=== PATIENT | female | born 2000 | race Caucasian/White ===

== ENCOUNTER 2018-06-14 11:21 | Day surgery (SDC) | payer BC ==
[~2018-06-14] VITALS: Ht 147.3 cm; Wt 140.0 kg
[2018-06-14] VITALS (10 sets, daily range): BP systolic 86–114; BP diastolic 44–86; PULSE 75–138; TEMP 97.8–98.8
[2018-06-14 12:02] LABS: HEMOGLOBIN 11.8 g/dl (12.0-15.0); MEAN CELL VOLUME 82 fl (80.0-95.0); MEAN CORPUSCULAR HEMOGLOBIN 27 pg (26.0-32.0); MEAN CORPUSCULAR HGB CONC 33 g/dl (33.0-37.0); MEAN PLATELET VOLUME 9.4 fl (7.4-10.4); PLATELET COUNT 217 K/mm3 (130-400); RED BLOOD COUNT 4.35 M/mm3 (4.10-5.30); REDCELL DISTRIBUTION WIDTH-CV 13.2 % (11.5-14.5)
[2018-06-14] MEDS ORDERED: BIRTH CONTROL (12:02)
[2018-06-14] MEDS ORDERED: WELLBUTRIN XL300 M1 PO (12:03)
[2018-06-14] MEDS ORDERED: LEXAPRO 10MG10 MG PO (12:04)
[2018-06-14] MEDS ORDERED: ANTIBIOTIC (12:04)
[2018-06-14 12:05] LABS: HEMATOCRIT 35.7 % (35.0-45.0)
[2018-06-14 12:10] LABS: ALBUMIN 3.9 gm/dL (3.5-5.0); BILIRUBIN,TOTAL 0.5 mg/dL (0.0-1.0); CALCIUM 8.8 mg/dL (8.4-10.2); CREATININE, serum 0.96 (0.52-1.25); POTASSIUM 3.2 mmol/L (3.4-5.0); TOTAL PROTEIN 7.7 gm/dL (6.4-8.2)
[2018-06-14 12:23] LABS: BAND 1 % (0-10); BASOPHIL 1 % (0-2); LYMPHOCYTE 13 % (20.0-51.0); NEUTROPHILS 84 % (42.0-75.2); PLATELET ESTIMATE NORMAL (NORMAL)
[2018-06-14 12:36] LABS: COLLECTION METHOD CLEAN CATCH
[2018-06-14 12:43] LABS: MUCOUS Present /lpf; PH 6 (5-8); URINE APPEARANCE Hazy; URINE BACTERIA Rare /hpf; URINE BILIRUBIN Negative (NEGATIVE); URINE BLOOD 1+ (NEGATIVE); URINE COLOR Yellow; URINE GLUCOSE Negative (NEGATIVE); URINE KETONE 1+ (NEGATIVE); URINE LEUKOCYTE ESTERASE Negative (NEGATIVE); URINE NITRATE Negative (NEGATIVE); URINE PROTEIN(semi-quant) 3+ (NEGATIVE); URINE UROBILINOGEN >=4.0 mg/dL (NEGATIVE)
--- NOTE | 2018-06-14 15:45 | NUR ---
1545- Pt arrives on unit from ED via wheelchair. Pt quiet and calm. Pt transfers into bed independently. IV infusing per report. Assessment completed. Pt nervous to go to surgery but cooperates with plan of care.
--- NOTE | 2018-06-14 18:00 | NUR ---
1800- Pt arrives on unit from PACU via gurney. VSS. Pt denies pain at this time. Asks for water and food.
--- NOTE | 2018-06-14 19:30 | NUR ---
1930 PT SLEEPING SOUNDLY ON LEFT SIDE. AWAKENS FOR VS.
--- NOTE | 2018-06-14 21:00 | NUR ---
2100 IV TO INT. UP TO BR WITH ASSIST. VOIDED 700CC. NO C/O PAIN. RETURNED TO BED.
[2018-06-15 02:00] VITALS: BP 97/58; PULSE 60; TEMP 97.9
[2018-06-15 05:25] VITALS: BP 89/60; PULSE 72; TEMP 97.8
[2018-06-15 07:45] VITALS: BP 103/73; PULSE 100; TEMP 97.5
--- NOTE | 2018-06-15 09:26 | NUR ---
Initial visit; Patient thanked Butcher Scullion for looking in on her and offering God's [phone] and hope for a speedy recovery.
== END 2018-06-15 11:15 | disposition home or self-care (01) ==
LOC: COL.ER 11:21 → OB 14:44 → COL.ER 14:44 → OB 14:44 → SDCO 14:44 → OB 06-15 11:15
PROVIDERS: Emergency Medicine
DX: N13.2 Hydronephrosis with renal and ureteral calculous obstruction (principal); F32.9 Major depressive disorder, single episode, unspecified; Z84.1 Family history of disorders of kidney and ureter; Z88.0 Allergy status to penicillin
CPT/HCPCS: A4216; C1769; C2617; J0690; J0696; J1100; J1885; J2250; J2405; J2704; J3010; J7030; J7120; Q9967